=== PATIENT | female | born 1980 | race Two or more races ===

== ENCOUNTER 2019-02-03 16:31 | Emergency (ER) | payer MEDICAID, OTHER ==
[~2019-02-03] VITALS: Ht 167.6 cm; Wt 63.5 kg
[2019-02-03 18:10] LABS: Acetaminophen < 2.0 ug/mL (10-30); Salicylate < 1.7 mg/dL (2.8-20.0)
[2019-02-03] MEDS ORDERED: ALPRAZolam 0.5 MG TAB PO ONE (18:30)
[2019-02-04] MEDS ORDERED: LORazepam 0.5 MG TAB PO ONE (01:00)
[2019-02-04] MEDS ORDERED: SERTRALINE HCL 50 MG TAB PO ONE (01:30)
[2019-02-04] MEDS ORDERED: lamoTRIgine 100 MG TAB PO ONE (01:30)
[2019-02-04] MEDS ORDERED: LORazepam 2MG/ML-1ML VIAL IM ONE (04:45)
[2019-02-04 06:12] LABS: Alcohol, Urine < 3.0 mg/dL (0-5); Amphetamine Screen, Urine NEGATIVE (NEGATIVE); Barbiturate Scree,Urine NEGATIVE (NEGATIVE); Benzodiazephine Screen, Urine POSITIVE (NEGATIVE); Cannabinoid Screen, Urine POSITIVE (NEGATIVE); Cocaine Screen, Urine NEGATIVE (NEGATIVE); Opiate Scree,Urine NEGATIVE (NEGATIVE)
[2019-02-04 06:19] LABS: Phencyclidine Screen, Urine NEGATIVE (NEGATIVE)
[2019-02-04 06:24] LABS: Urine Bacteria FEW /hpf (None Seen); Urine Blood Negative /uL (Negative); Urine Mucus FEW (None Seen); Urine Specific Gravity 1.032 (1.001-1.035); Urine WBC 4 /hpf (0 - 5)
[2019-02-04 17:02] VITALS: BP 130/96
[2019-02-04] MEDS ORDERED: lamoTRIgine 100 MG TAB PO SCH (22:00)
[2019-02-04] MEDS ORDERED: SERTRALINE HCL 50 MG TAB PO SCH (22:00)
== END 2019-02-04 17:24 | disposition short-term general hospital (02) ==
LOC: ER 16:31
DX: F41.9 Anxiety disorder, unspecified (principal); F32.9 Major depressive disorder, single episode, unspecified; R45.851 Suicidal ideations; F17.210 Nicotine dependence, cigarettes, uncomplicated
CPT/HCPCS: 36415; 80307; 80320; 80329; 81001; 93005; 96372; 99285; J2060